=== PATIENT | male | born 1945 | race Caucasian/White ===

== ENCOUNTER → 2020-12-13 | Outpatient (CLI) | payer MEDICARE ==
[~2020-12-13] MED LIST: AMLODIPINE BESYL5 MG PO; AREDS PO; COLACE100 MG PO; MULTI-VITAMIN1 EACH PO
== END ==
LOC: CT 11:46
DX: C65.9 Malignant neoplasm of unspecified renal pelvis (principal)
CPT/HCPCS: 74150

== ENCOUNTER → 2020-12-26 | Outpatient (CLI) | payer MEDICARE | LOC: NM 07:43 | DX: C65.9 Malignant neoplasm of unspecified renal pelvis (principal); Z90.5 Acquired absence of kidney; R93.7 Abnormal findings on diagnostic imaging of other parts of musculoskeletal system | CPT/HCPCS: 78306; A9503 ==

== ENCOUNTER → 2020-12-28 | Day surgery (SDC) | payer MEDICARE ==
[~2020-12-28] VITALS: Ht 180.3 cm; Wt 74.8 kg
== END | disposition home or self-care (01) ==
LOC: OR 07:21
DX: C79.9 Secondary malignant neoplasm of unspecified site (principal); C64.9 Malignant neoplasm of unspecified kidney, except renal pelvis; I10 Essential (primary) hypertension; Z79.899 Other long term (current) drug therapy
CPT/HCPCS: 77001; C1769; C1788; J0690; J1642; J2405; J2704; J3010; J7030; J7040; J7120

== ENCOUNTER → 2021-03-15 | Outpatient (CLI) | payer MEDICARE | LOC: CT 09:20 | DX: C65.9 Malignant neoplasm of unspecified renal pelvis (principal); K90.9 Intestinal malabsorption, unspecified; R91.8 Other nonspecific abnormal finding of lung field; R19.09 Other intra-abdominal and pelvic swelling, mass and lump; Z90.5 Acquired absence of kidney | CPT/HCPCS: 71250 ==

== ENCOUNTER → 2021-06-21 | Outpatient (CLI) | payer MEDICARE ==
[2021-06-21 09:00] LABS: HEMOGLOBIN 11.3 gm/dl (14.0-17.5); RED BLOOD COUNT 3.49 M/UL (4.20-5.50); WHITE BLOOD COUNT 8.1 K/UL (4.5-11.0)
== END ==
LOC: CT 08:38
PROVIDERS: Internal Medicine Hematology & Oncology
DX: C65.9 Malignant neoplasm of unspecified renal pelvis (principal); K90.9 Intestinal malabsorption, unspecified; R91.8 Other nonspecific abnormal finding of lung field
CPT/HCPCS: 36415; 71260; 80053; 83735; 85025; Q9965

== ENCOUNTER 2021-07-20 09:39 | Emergency (ER) | payer OTHER ==
[2021-07-20 10:15] LABS: HEMOGLOBIN 11.2 gm/dl (14.0-17.5); RED BLOOD COUNT 3.58 M/UL (4.20-5.50); WHITE BLOOD COUNT 11.2 K/UL (4.5-11.0)
[2021-07-20] MEDS ORDERED: VALACYCLOVIR1000 MG PO (11:52)
[2021-07-20] MEDS ORDERED: PREDNISONE 50 M50 MG PO (11:52)
== END 2021-07-20 12:00 | disposition home or self-care (01) ==
LOC: ER1 09:39
PROVIDERS: Emergency Medicine
DX: G51.0 Bell's palsy (principal); I12.9 Hypertensive chronic kidney disease with stage 1 through stage 4 chronic kidney disease, or unspecified chronic kidney disease; N18.9 Chronic kidney disease, unspecified; J44.9 Chronic obstructive pulmonary disease, unspecified; E11.22 Type 2 diabetes mellitus with diabetic chronic kidney disease
CPT/HCPCS: 70450; 71045; 80053; 82550; 82553; 82962; 83874; 84484; 85025; 93005; 99284

== ENCOUNTER → 2021-09-11 | Outpatient (CLI) | payer OTHER ==
[~2021-09-11] MED LIST changes: +PREDNISONE 50 M50 MG PO; +VALACYCLOVIR1000 MG PO
== END ==
LOC: CT 10:58
DX: C65.9 Malignant neoplasm of unspecified renal pelvis (principal); K90.9 Intestinal malabsorption, unspecified; Z90.5 Acquired absence of kidney; K66.9 Disorder of peritoneum, unspecified; R91.1 Solitary pulmonary nodule; R91.8 Other nonspecific abnormal finding of lung field; D17.1 Benign lipomatous neoplasm of skin and subcutaneous tissue of trunk
CPT/HCPCS: 71260; Q9965

== ENCOUNTER → 2021-12-27 | Outpatient (CLI) | payer OTHER ==
[2021-12-27 09:15] LABS: HEMOGLOBIN 11.9 gm/dl (14.0-17.5); RED BLOOD COUNT 3.82 M/UL (4.20-5.50); WHITE BLOOD COUNT 7.6 K/UL (4.5-11.0)
== END ==
LOC: CT 08:50
PROVIDERS: Internal Medicine Hematology & Oncology
DX: C65.9 Malignant neoplasm of unspecified renal pelvis (principal); K90.9 Intestinal malabsorption, unspecified; Z90.5 Acquired absence of kidney; Z90.81 Acquired absence of spleen; M89.9 Disorder of bone, unspecified; D17.1 Benign lipomatous neoplasm of skin and subcutaneous tissue of trunk
CPT/HCPCS: 71260; 80053; 84443; 85025; Q9967